=== PATIENT | male | born 1970 | race Caucasian/White ===

== ENCOUNTER 2021-04-21 11:44 | Emergency (ER) | payer OTHER, MEDICARE ==
[2021-04-21] MEDS ORDERED: NORCO 5-325 TA1 EACH PO (14:22)
== END 2021-04-21 14:34 | disposition home or self-care (01) ==
LOC: FER 11:44
DX: S52.571A Other intraarticular fracture of lower end of right radius, initial encounter for closed fracture (principal); Z88.0 Allergy status to penicillin; V89.2XXA Person injured in unspecified motor-vehicle accident, traffic, initial encounter
CPT/HCPCS: 73090; 73110